=== PATIENT | female | born 1955 | race Caucasian/White ===

== ENCOUNTER 2019-07-06 18:13 | Emergency (ER) | payer SELFPAY ==
[~2019-07-06] VITALS: Ht 160 cm; Wt 89.4 kg
[2019-07-06 18:32] VITALS: Ht 160 cm; Wt 89.4 kg
[2019-07-06 20:57] VITALS: BP 125/67
== END 2019-07-06 20:57 | disposition home or self-care (01) ==
LOC: ED 18:13
DX: H11.32 Conjunctival hemorrhage, left eye (principal); I10 Essential (primary) hypertension